=== PATIENT | male | born 1965 | race Caucasian/White ===

== ENCOUNTER 2022-12-25 10:31 | Inpatient (IN) | payer OTHER ==
[2022-12-25 10:57] VITALS: BMI 26.5
[2022-12-25] MEDS ORDERED: POLYETHYLENE GLYCOL (HEALTHYLAX) 3350 17 GM PACKET PO PRN (11:23)
[2022-12-25] MEDS ORDERED: BENZOCAINE/MENTHOL (CHLORASEPTIC ) LOZENGE MM PRN (11:23)
[2022-12-25] MEDS ORDERED: BISMUTH SUBSALICYLATE 524 MG/30 ML PO PRN (11:23)
[2022-12-25] MEDS ORDERED: guaiFENesin 600 MG TABLET.ER (FP) PO PRN (11:23)
[2022-12-25] MEDS ORDERED: ACETAMINOPHEN 325 MG TABLET (FP) PO PRN (11:23)
[2022-12-25] MEDS ORDERED: IBUPROFEN 600 MG TABLET (FP) PO PRN (11:23)
[2022-12-25] MEDS ORDERED: MAG HYDROX/AL HYDROX/SIMETH 30 ML UNIT-DOSE CUP PO PRN (11:23)
[2022-12-25] MEDS ORDERED: ONDANSETRON *ODT* 4 MG TABLET SL PRN (11:23)
[2022-12-25] MEDS ORDERED: LORazepam 1 MG TABLET PO PRN (11:23)
[2022-12-25] MEDS ORDERED: NALOXONE HCL 0.4 MG/ML VIAL IM PRN (11:23)
[2022-12-25] MEDS ORDERED: DICYCLOMINE HCL 10 MG CAPSULE PO PRN (11:23)
[2022-12-25] MEDS ORDERED: BENZONATATE 200 MG CAPSULE PO PRN (11:23)
[2022-12-25] MEDS ORDERED: NALOXONE HCL (KLOXXADO) 8 MG SPRAY NS PRN (11:23)
[2022-12-25] MEDS ORDERED: IBUPROFEN 400 MG TABLET (FP) PO PRN (11:23)
[2022-12-25] MEDS ORDERED: LOPERAMIDE HCL 2 MG CAPSULE PO PRN (11:23)
[2022-12-25] MEDS ORDERED: MAGNESIUM HYDROX 2400MG/30ML ORAL SUSPENSION 30 ML CUP PO PRN (11:23)
[2022-12-25] MEDS ORDERED: PRENATAL VITAMINS W/ FOLIC ACID TABLET (FP) PO ONE (13:27)
[2022-12-25] MEDS ORDERED: LORazepam 2 MG TABLET ONE (13:27)
[2022-12-25] MEDS: PRENATAL VITAMINS W/ FOLIC ACID TABLET (FP) PO SCH (13:28)
[2022-12-25] MEDS ORDERED: LORazepam 2 MG TABLET PO ONE (13:30)
[2022-12-25 15:02] LABS: HEMATOCRIT 46.3 % (35.4-49); MCH 30.7 pg (25.7-33.7); MCHC 34.5 g/dl (32.0-35.9); MEAN PLT VOLUME 7.8 fl (7.5-11.1); PLATELET COUNT 240 10^3/uL (134-434); RDW 15.3 % (11.9-15.9); WHITE BLOOD COUNT 4.4 K/mm3 (4.0-10.0)
[2022-12-25 15:04] LABS: POTASSIUM 4.2 mmol/L (3.5-5.1)
[2022-12-25 15:16] LABS: CALCIUM 9.6 mg/dL (8.5-10.1)
[2022-12-25 15:17] LABS: ALBUMIN 4.1 g/dl (3.4-5.0); BLOOD UREA NITROGEN 15.5 mg/dL (7-18)
[2022-12-25 15:19] LABS: CREATININE 0.9 mg/dL (0.55-1.3)
[2022-12-25 15:21] LABS: BILIRUBIN,TOTAL 1.1 mg/dL (0.2-1)
[2022-12-25] MEDS: LOSARTAN POTASSIUM 25 MG TABLET PO SCH (15:57)
[2022-12-25] MEDS: LACTULOSE 20 GM/30 ML UDC (FOR ORAL USE ONLY) PO SCH ×2 (15:57→22:28)
[2022-12-25] MEDS: LORazepam 2 MG TABLET PO SCH ×2 (17:59→22:27)
[2022-12-25] MEDS: THIAMINE HCL 100 MG TABLET (FP) PO SCH (22:28)
[2022-12-25] MEDS: MELATONIN 5 MG TABLETS PO SCH (22:28)
[2022-12-26] MEDS: LORazepam 2 MG TABLET PO SCH ×4 (05:37→22:37)
[2022-12-26] MEDS: LACTULOSE 20 GM/30 ML UDC (FOR ORAL USE ONLY) PO SCH ×3 (05:37→22:33)
[2022-12-26] MEDS: PRENATAL VITAMINS W/ FOLIC ACID TABLET (FP) PO SCH (10:15)
[2022-12-26] MEDS: LOSARTAN POTASSIUM 25 MG TABLET PO SCH (10:15)
[2022-12-26] MEDS: THIAMINE HCL 100 MG TABLET (FP) PO SCH (22:34)
[2022-12-26] MEDS: MELATONIN 5 MG TABLETS PO SCH (22:34)
[2022-12-26] MEDS: hydrOXYzine PAMOATE 25 MG CAPSULE (FP) PO PRN (22:36)
[2022-12-26] MEDS: METHOCARBAMOL 500 MG TABLET PO PRN (22:36)
[2022-12-27] MEDS: LACTULOSE 20 GM/30 ML UDC (FOR ORAL USE ONLY) PO SCH ×3 (05:45→22:31)
[2022-12-27] MEDS: LORazepam 1 MG TABLET PO SCH ×4 (05:45→22:31)
[2022-12-27] MEDS: LOSARTAN POTASSIUM 25 MG TABLET PO SCH (10:37)
[2022-12-27] MEDS: PRENATAL VITAMINS W/ FOLIC ACID TABLET (FP) PO SCH (10:37)
[2022-12-27] MEDS: METHOCARBAMOL 500 MG TABLET PO PRN (17:59)
[2022-12-27] MEDS: hydrOXYzine PAMOATE 25 MG CAPSULE (FP) PO PRN (18:00)
[2022-12-27] MEDS: THIAMINE HCL 100 MG TABLET (FP) PO SCH (22:31)
[2022-12-27] MEDS: MELATONIN 5 MG TABLETS PO SCH (22:31)
[2022-12-28] MEDS ORDERED: LORazepam 0.5 MG TABLET PO PRN
[2022-12-28] MEDS: LORazepam 0.5 MG TABLET PO SCH ×4 (05:37→22:18)
[2022-12-28] MEDS: LACTULOSE 20 GM/30 ML UDC (FOR ORAL USE ONLY) PO SCH ×3 (05:37→22:18)
[2022-12-28] MEDS: PRENATAL VITAMINS W/ FOLIC ACID TABLET (FP) PO SCH (10:06)
[2022-12-28] MEDS: LOSARTAN POTASSIUM 25 MG TABLET PO SCH (10:06)
[2022-12-28] MEDS: MELATONIN 5 MG TABLETS PO SCH (22:18)
[2022-12-28] MEDS: THIAMINE HCL 100 MG TABLET (FP) PO SCH (22:18)
[2022-12-29] MEDS ORDERED: LORazepam 0.5 MG TABLET PO ONE (05:00)
[2022-12-29] MEDS: LACTULOSE 20 GM/30 ML UDC (FOR ORAL USE ONLY) PO SCH (05:38)
[2022-12-29] MEDS: LOSARTAN POTASSIUM 25 MG TABLET PO SCH (09:00)
[2022-12-29 09:39] VITALS: BP 159/97; PULSE 101; RESP 18; TEMP 98.4
== END 2022-12-29 08:53 | disposition home or self-care (01) | DRG 775 ==
LOC: YASAS 10:31 → Y3N 13:40
PROVIDERS: ADMIT Allergy & Immunology; ATTEND Surgery
PROC: HZ2ZZZZ Detoxification Services for Substance Abuse Treatment (ICD-10-PCS; principal; 2022-12-25)
DX: F10.230 Alcohol dependence with withdrawal, uncomplicated (principal); E72.20 Disorder of urea cycle metabolism, unspecified; I10 Essential (primary) hypertension; K21.9 Gastro-esophageal reflux disease without esophagitis; K76.0 Fatty (change of) liver, not elsewhere classified
CPT/HCPCS: 36415; 71046-TC-FY; 80053; 82140; 85027; 86780; 87635; 87811; 93005; 93010